=== PATIENT | female | born 1995 | race Hispanic/Latino ===

== ENCOUNTER 2020-07-02 18:46 | Emergency (ER) | payer OTHER | END 2020-07-02 22:20 | disposition home or self-care (01) | LOC: EDH 18:46 | DX: U07.1 COVID-19 (principal); Z72.0 Tobacco use | CPT/HCPCS: 87426 ==

== ENCOUNTER 2022-03-20 21:31 | Emergency (ER) | payer OTHER ==
[~2022-03-20] VITALS: Ht 157.5 cm; Wt 70.3 kg
[2022-03-20 21:34] VITALS: BP 127/77
[2022-03-20] MEDS ORDERED: KETOROLAC 60 MG VIAL (30MG/ML) IM ONE (22:00)
[2022-03-20] MEDS ORDERED: NAPR-1180 PO (22:13)
== END 2022-03-20 22:26 | disposition home or self-care (01) ==
LOC: EDH 21:31
DX: S86.912A Strain of unspecified muscle(s) and tendon(s) at lower leg level, left leg, initial encounter (principal); S80.02XA Contusion of left knee, initial encounter; W18.39XA Other fall on same level, initial encounter; Y93.89 Activity, other specified; Y92.89 Other specified places as the place of occurrence of the external cause; Y99.8 Other external cause status
CPT/HCPCS: 99283; 73562; 96372; J1885

== ENCOUNTER 2025-05-08 19:14 | Emergency (ER) | payer MEDICAID ==
[~2025-05-08] VITALS: Ht 157.5 cm; Wt 74.4 kg
[~2025-05-08 19:14] MED LIST: NAPR-1180 PO
[2025-05-08 19:34] VITALS: BP 140/70; PULSE 101; RESP 18; TEMP 101.3; O2SAT 98
[2025-05-08] MEDS: 0.9%NACL 1000ML 1,000 ML IV STA (19:41)
[2025-05-08 19:48] LABS: SARS-CoV-2, RNA, NAAT NEGATIVE SARS CoV-2 (NEGATIVE)
[2025-05-08 19:53] LABS: INFLUENZA TYPE A Negative For Type A (NEGATIVE); INFLUENZA TYPE B Negative For Type B (NEGATIVE)
[2025-05-08 19:55] LABS: ADD UA MICROSCOPIC YES; APPEARANCE,URINE CLEAR (CLEAR); GLUCOSE, URINE (UA) NEGATIVE (NEGATIVE); LEUKOCYTE ESTERASE ,URINE 25 Leu/uL (NEGATIVE); NITRATE,URINE NEGATIVE (NEGATIVE); OCCULT BLOOD,URINE SMALL (NEGATIVE)
[2025-05-08 20:00] LABS: SQUAMOUS EPITHELIAL CELL,UR RARE /HPF (0-2)
[2025-05-08 20:34] VITALS: TEMP 98.8
--- NOTE | 2025-05-08 20:41 | ERN ---
ED Note History of Present Illness Stated Complaint: C/O FEVER,HEADACHE ONSET DAYS AGO Chief Complaint: Fever Time Seen by MD: 19:18 Time Seen by Midlevel: 19:20 Dictation: 29-year-old female coming in with complaints of fever body aches for three days. Patient states she went to go see the PCP today they did swabs and they prescribed her Tamiflu. She did not get any results from the swabs. Patient states he decided to come into the emergency room because she felt lightheaded and began shaking. LMP was two months ago but states she is on control. Denies any medical or surgical history. Allergies: Coded Allergies: No Known Drug Allergies (Unverified Allergy, Unknown, 03/20/22) Home Meds Active Scripts Naproxen (Naprosyn) 500 Mg Tablet, 500 MG PO BIDPC, #60 TAB Prov:CORA SOLER 03/20/22 Past Medical History Past Medical History: No Pertinent History Surgical History: None Family History: Negative Social History: Negative Review of System Dictation Constitutional: Positive for fever and generalized malaise Eyes: Negative for injury, pain,redness, and discharge ENT: Negative for injury,pain or swelling Cardiovascular: Negative for chest pain, palpitations, and edema Respiratory: Negative for shortness of breath, cough, and wheezing, Abdomen/GI: Negative for abdominal pain, nausea, vomiting, diarrhea, and const ipation Back: Negative for injury and pain : Negative for injury, bleeding and discharge MS/Extremity: Negative for injury and deformity Skin: Negative for rash, and discoloration Neuro: Negative for headache, weakness, numbness, tingling, and seizure Psych: Negative for suicide ideation, homicidal ideation, and hallucinations Review of Systems: was completed Initial Vital Sign VS Vital Signs Date Time Temp Pulse Resp B/P (MAP) Pulse Ox O2 Delivery O2 Flow Rate FiO2 05/08/25 19:18 101.3 102 20 140/74 98 Room Air 05/08/25 19:34 0 21 Physical Exam Dictation General: awake, alert, NAD Head/Face: Normocephalic, atraumatic Eyes: PERRL, EOMI, vision at baseline ENT: oral cavity clear, TMs clear, no signs of infection Neck: Trachea midline, supple, no nuchal rigidity Cardiovascular: RRR, normal S1/S2, No MRGs, no JVD Respiratory: CTAB, no respiratory distress, No rales or wheezes Abdomen: Soft, non-tender, non-distended, normal bowel sounds, no guarding or rebound. Skin: Warm, dry, normal turgor, no rash MS/Extremity: Pulses equal, no cyanosis, neurovascular intact, FROM Neuro: COAx4, GCS 15, strength 5/5, CN 2-12 intact, normal cerebellar exam, normal gait, Psych: Normal behavior, mood, and affect normal Results (Laboratory/Radiology) Laboratory/Radiology Laboratory Tests Test 05/08/25 19:27 05/08/25 19:39 Influenza Type A Antigen Negative For Type A Influenza Type B Antigen Negative For Type B SARS-CoV-2, RNA, NAAT NEGATIVE SARS CoV-2 Urine Color LIGHT-YELLOW (YELLOW) Urine Appearance CLEAR (CLEAR) Urine pH 6.0 (5.0-8.0) Urine Specific [place] 1.007 (1.001-1.031) Urine Protein NEGATIVE mg/dL (NEGATIVE) Urine Glucose (UA) NEGATIVE mg/dL (NEGATIVE) Urine Ketones NEGATIVE mg/dL (NEGATIVE) Urine Occult Blood SMALL (NEGATIVE) H Urine Nitrate NEGATIVE (NEGATIVE) Urine Bilirubin NEGATIVE mg/dL (NEGATIVE) Urine Urobilinogen 0.2 mg/dL (0.2-1.0) Urine Leukocyte Esterase 25 Radha/uL (NEGATIVE) H Urine RBC 2-5 /HPF (0-1) H Urine WBC 2-5 /HPF (0-1) H Urine Squamous Epithelial Cells RARE /HPF (0-2) Urine Bacteria RARE /HPF (None Seen) Labs Reviewed?: Yes ED Course ED Course Orders Procedure Category Date Status Time Covid Rna Naat LAB 05/08/25 Complete 19:21 Influenza Type A & B, LAB 05/08/25 Complete Rapid 19:21 0.9%Nacl 1000ml (Ns PHA 05/08/25 Complete 1000ml) 19:22 Acetaminophen 500mg PHA 05/08/25 Complete Tab (Tylenol 500mg T 19:30 Ketorolac PHA 05/08/25 Complete Tromethamine 15mg/Ml 19:30 Urinalysis Profile LAB 05/08/25 Complete 19:38 Current Medications Medications (Trade) Dose Ordered Sig/Yoanna Route PRN Reason Start Time Stop Time Status Last Admin Dose Admin Acetaminophen (TYLenol 500MG TAB) 1,000 mg ONCE ONCE PO 05/08/25 19:30 05/08/25 19:31 DC 05/08/25 19:41 Ketorolac Tromethamine (toRADol) 15 mg ONCE ONCE IV 05/08/25 19:30 05/08/25 19:31 DC 05/08/25 19:41 Sodium Chloride 1,000 ml @ 100 mls/hr Q10H STAT IV 05/08/25 19:22 05/08/25 20:58 DC 05/08/25 19:41 Vital Signs Date Time Temp Pulse Resp B/P (MAP) Pulse Ox O2 Delivery O2 Flow Rate FiO2 05/08/25 19:41 101.3 05/08/25 19:34 101.3 101 18 140/70 98 Room Air* 0 21 05/08/25 19:18 101.3 102 20 140/74 98 Room Air Medical Decision Making MDM MDM: 29-year-old female coming in with complaints of fever body aches for three days. Patient states she went to go see the PCP today they did swabs and they prescribed her Tamiflu. She did not get any results from the swabs. Patient states he decided to come into the emergency room because she felt lightheaded and began shaking. LMP was two months ago but states she is on control. Denies any medical or surgical history. Flu, COVID negative. Educated patient to continue taking the Tamiflu that was prescribed by PCP. Educated to take Tylenol or Motrin around the clock for symptomatic control. After fluids and Tylenol patient is feels better. Differential diagnosis: Flu, COVID, viral syndrome Rationale: Tests considered and ordered secondary to shared decision making include: Previous outside records reviewed: Old ER visits. Risk of complication and/or morbidity or mortality of patient management: None Medications-Per medication reconciliation Need for hospitalization: Patient does not meet criteria for hospitalization. Need for emergency major/minor surgery: No There are no social concerns with this patient. Prescription drug management Prescriptions will include symptomatic care Patient's prior external medical records from other ER visits were reviewed by me as indicated. Prior testing and results from previous visits were reviewed. Prior tests were taken into account with medical decision making and resource utilization, independent historian/historians were used to obtain complete [facility] history. I independently interpreted the test that were performed, results were reviewed by me and considered findings on radiology if ordered. Medical management and examination interpretation discussions were had by me with other qualified healthcare professionals as indicated for the patient's care. DX & DISP Disposition: Discharge Departure Impression: Primary Impression: Viral syndrome Condition: Stable Additional Instructions: Stay hydrated, take Tylenol or Motrin [id number] for pain control. Follow up with your primary in 1-2 days. Return to the hospital as needed. Referrals: IAM MCCARTHY (PCP) Time of Disposition: 20:47 I have reviewed the case, and I agree with, Diagnosis and Plan I performed a substantive portion of the visit. I have reviewed and personally made and approve the management plan that is documented in the notes by myself with DIVINE/resident. I acknowledged full responsibility for the patient's management plan. VICKI ROWLAND CNP May 08, 2025 20:41 ROBIN DICKEY DO May 09, 2025 01:39
== END 2025-05-08 20:53 | disposition home or self-care (01) ==
LOC: EDH 19:14
DX: B34.9 Viral infection, unspecified (principal); Z20.822 Contact with and (suspected) exposure to COVID-19
CPT/HCPCS: 99284; 96374; 87635; 96361; 87804 ×2; 81001; J1885; J7030